=== PATIENT | female | born 1985 | race Caucasian/White ===

== ENCOUNTER 2018-08-09 07:53 | Emergency (ER) | payer MEDICAID ==
[~2018-08-09] VITALS: Ht 162.6 cm; Wt 102.1 kg
[~2018-08-09 07:53] MED LIST: BCP; MECL25TA3 PO
[2018-08-09 08:05] VITALS: BP_SYST 135
--- NOTE | 2018-08-09 08:11 | NUR ---
Patient to ER bed 5 to gown for evaluation. Side rails up. Report given to PAVAN BELL.
--- NOTE | 2018-08-09 08:17 | NUR ---
Patient is awake, alert, and oriented x4. She is complaining of migraine x5 days, nausea, vomiting. Patient presents with headache 10/. Patient reports not taking her migraine medication for 1 month.
--- NOTE | 2018-08-09 08:20 | NUR ---
ER Dr. Sewell at bedside examining patient.
[2018-08-09] MEDS ORDERED: ONDANSETRON 4 MG ODT TAB PO ONE (08:30)
[2018-08-09] MEDS ORDERED: SUMAtriptan SUCCINATE 6 MG/0.5 ML VIAL SUBCUT ONE (08:30)
--- NOTE | 2018-08-09 08:54 | NUR ---
Patient given written and verbal discharge instructions and verbalizes understanding. ER MD discussed with patient the results and treatment provided. Patient in stable condition. ID arm band removed. IV catheter removed intact and dressing applied, no active bleeding. Rx of imitrex, zofran given. Patient educated on pain management and to follow up with PMD. Pain Scale 7/10, Dr. Sewell is aware. Opportunity for questions provided and answered. Medication side effect fact sheet provided.
[2018-08-09 08:56] VITALS: BP_SYST 135
== END 2018-08-09 08:56 | disposition home or self-care (01) ==
LOC: SED 07:53
DX: G43.909 Migraine, unspecified, not intractable, without status migrainosus (principal); Z79.899 Other long term (current) drug therapy
CPT/HCPCS: 81025; 96372; 99283; J3030; Q0162

== ENCOUNTER 2018-11-09 06:52 | Emergency (ER) | payer MEDICAID ==
[~2018-11-09] VITALS: Ht 162.6 cm; Wt 99.8 kg
[2018-11-09 07:02] VITALS: BP_SYST 133
[2018-11-09 08:04] LABS: BASOPHILS # (AUTO) 0.1 K/uL (0.0-0.2); BASOPHILS % (AUTO) 0.9 % (0.0-2.0); EOSINOPHILS # (AUTO) 0.3 K/uL (0.0-0.4); EOSINOPHILS % (AUTO) 2.8 % (0.0-4.0); HEMATOCRIT 41.1 % (36-48); HEMOGLOBIN 13.8 g/dL (12.0-16.0); LYMPHOCYTES # (AUTO) 2.1 K/uL (1.0-5.5); LYMPHOCYTES % (AUTO) 20.1 % (20.5-51.5); MEAN CORPUSCULAR HEMOGLOBIN 31 pg (27-31); MEAN CORPUSCULAR HGB CONC 34 % (32-36); MEAN CORPUSCULAR VOLUME 91 fL (79.0-98.0); MONOCYTES # (AUTO) 0.6 K/uL (0.0-1.0); MONOCYTES % (AUTO) 5.8 % (1.7-9.3); NEUTROPHILS # (AUTO) 7.5 K/uL (1.8-7.7); NEUTROPHILS % (AUTO) 70.4 % (40.0-70.0); PLATELET COUNT (AUTO) 318 K/uL (130-430); RED BLOOD CELL COUNT(AUTO) 4.53 MIL/uL (4.2-6.2); RED CELL DISTRIBUTION WIDTH 13.1 % (9.0-15.0); WHITE BLOOD COUNT (AUTO) 10.7 K/uL (4.8-10.8)
[2018-11-09 08:07] LABS: CALCIUM 8.9 mg/dL (8.4-11.0); CREATININE 0.78 mg/dL (0.55-1.30); POTASSIUM 3.9 mmol/L (3.5-5.1)
[2018-11-09 08:13] LABS: ALBUMIN 3.3 g/dL (3.4-4.8); TOTAL BILIRUBIN 0.3 mg/dL (0.0-1.0)
--- NOTE | 2018-11-09 09:00 | NUR ---
Patient to ER bed 4 to gown for evaluation. Side rails up. Report given to Tiffani BELL.
--- NOTE | 2018-11-09 09:05 | NUR ---
ER Dr. Sewell at bedside examining patient.
[2018-11-09] MEDS ORDERED: MAG HYDROX/AL HYDROX/SIMETH 30 ML, DICYCLOMINE HCL 20 MG, LIDOCAINE VISCOUS 2% 15ML (PO... PO ONE ×3 (09:15)
--- NOTE | 2018-11-09 09:25 | NUR ---
Patient presented to er with C/O BURNING UPPER ABD PAIN X 3 DAYS,VOMITING X 2 DAYS,DIARRHEA 5X TODAY. Patient A&Ox4, skin pink, pain 10/10, nausea, emesis x2, diarrhea x2, pt ambulatory to ER. Patient states pain has been ongoing for 2 days, with emesis today x2, diarrhea today x2. Patient denies other health problems.
[2018-11-09 11:10] VITALS: BP_SYST 133
--- NOTE | 2018-11-09 11:10 | NUR ---
Patient given written and verbal discharge instructions and verbalizes understanding. ER MD discussed with patient the results and treatment provided. Patient in stable condition. ID arm band removed. Rx of Protonix given. Patient educated on pain management and to follow up with PMD. Pain Scale 3/10 tolerable for pt . Opportunity for questions provided and answered. Medication side effect fact sheet provided.
== END 2018-11-09 11:10 | disposition home or self-care (01) ==
LOC: SED 06:52
DX: K52.9 Noninfective gastroenteritis and colitis, unspecified (principal); I10 Essential (primary) hypertension; Z79.899 Other long term (current) drug therapy
CPT/HCPCS: 36415; 74018; 80053; 81025; 83690; 85025; 99284; J2001

== ENCOUNTER 2019-10-16 14:07 | Emergency (ER) | payer MEDICAID, SELFPAY ==
[~2019-10-16] VITALS: Ht 165.1 cm; Wt 77.1 kg
--- NOTE | 2019-10-16 14:30 | NUR ---
DR JOHNSON IN TO ASSESS
[2019-10-16 14:34] VITALS: BP_SYST 116
[2019-10-16 14:47] LABS: BASOPHILS % (AUTO) 0.8 % (0.0-2.0); EOSINOPHILS # (AUTO) 0.1 K/uL (0.0-0.4); HEMATOCRIT 44.8 % (36-48); HEMOGLOBIN 14.9 g/dL (12.0-16.0); LYMPHOCYTES # (AUTO) 1.9 K/uL (1.0-5.5); LYMPHOCYTES % (AUTO) 36.5 % (20.5-51.5); MEAN CORPUSCULAR HEMOGLOBIN 30 pg (27-31); MEAN CORPUSCULAR HGB CONC 33 % (32-36); MEAN CORPUSCULAR VOLUME 90 fL (79.0-98.0); MONOCYTES # (AUTO) 0.4 K/uL (0.0-1.0); MONOCYTES % (AUTO) 8.3 % (1.7-9.3); NEUTROPHILS # (AUTO) 2.9 K/uL (1.8-7.7); NEUTROPHILS % (AUTO) 53.4 % (40.0-70.0); PLATELET COUNT (AUTO) 269 K/uL (130-430); RED BLOOD CELL COUNT(AUTO) 4.97 MIL/uL (4.2-6.2); RED CELL DISTRIBUTION WIDTH 13.2 % (9.0-15.0); WHITE BLOOD COUNT (AUTO) 5.3 K/uL (4.8-10.8)
--- NOTE | 2019-10-16 15:00 | NUR ---
HERE FOR FEVER/CHILLS, CP/SOB. RESP UNLABORED, SKIN HOT TO TOUCH/FLUSHED/ COMMUNICATES CLEARLY IN FULL COMPLETE SENTENCES, STEADY GAIT. C/O CONCERNS FOR HER CHILDREN DUE TO FEELING LIKE SHE HAS COVID
[2019-10-16 15:02] LABS: CALCIUM 8.9 mg/dL (8.4-11.0); CREATININE 0.7 mg/dL (0.55-1.30); POTASSIUM 3.7 mmol/L (3.5-5.1)
[2019-10-16 15:08] LABS: ALBUMIN 3.7 g/dL (3.4-4.8); TOTAL BILIRUBIN 0.4 mg/dL (0.0-1.0)
[2019-10-16 15:52] LABS: BILIRUBIN,URINE NEGATIVE (NEGATIVE); BLOOD, URINE NEGATIVE (NEGATIVE); COLOR,URINE YELLOW (YELLOW); GLUCOSE,URINE NEGATIVE (NEGATIVE); KETONES,URINE NEGATIVE (NEGATIVE); LEUKOCYTE ESTERASE ,URINE 1+ (NEGATIVE); NITRITE, URINE NEGATIVE (NEGATIVE); PH,URINE 5.5 (5.0-8.0); PROTEIN URINE NEGATIVE (NEGATIVE); UROBILINOGEN,URINE 0.2 (0.2-1.0)
[2019-10-16 16:03] LABS: CLARITY/URINE SLIGHTLY HAZY (CLEAR)
[2019-10-16 16:15] VITALS: BP_SYST 116
--- NOTE | 2019-10-16 16:15 | NUR ---
Patient given written and verbal discharge instructions and verbalizes understanding. ER MD discussed with patient the results and treatment provided. Patient in stable condition. ID arm band removed. Patient educated on pain management and to follow up with PMD. Pain Scale 0/10 Opportunity for questions provided and answered. Medication side effect fact sheet provided.
[2019-10-16 16:29] LABS: BACTERIA,URINE MODERATE /HPF (None Seen); MUCUS,URINE None Seen /LPF (None Seen); RBC,URINE 0-3 /HPF (0-3)
== END 2019-10-16 16:15 | disposition home or self-care (01) ==
LOC: SED 14:07
DX: J20.8 Acute bronchitis due to other specified organisms (principal); B97.89 Other viral agents as the cause of diseases classified elsewhere; I10 Essential (primary) hypertension; G43.909 Migraine, unspecified, not intractable, without status migrainosus
CPT/HCPCS: 36415; 71045; 80053; 81000-TC; 85025; 87086; 99284